=== PATIENT | female | born 1965 | race Caucasian/White ===

== ENCOUNTER 2022-05-06 20:03 | Emergency (ER) | payer SELFPAY ==
[2022-05-06] MEDS ORDERED: Acetaminophen 500 MG TAB ONE (22:22)
== END 2022-05-06 23:08 | disposition home or self-care (01) ==
LOC: ERS 20:03
DX: S70.02XA Contusion of left hip, initial encounter (principal); M19.90 Unspecified osteoarthritis, unspecified site; F17.290 Nicotine dependence, other tobacco product, uncomplicated; W19.XXXA Unspecified fall, initial encounter
CPT/HCPCS: 72170